=== PATIENT | female | born 1995 | race Caucasian/White ===

== ENCOUNTER 2017-03-16 20:51 | Emergency (ER) | payer OTHER ==
--- NOTE | 2017-03-16 20:54 | PDOC ---
History of Present Illness - General History Source: Patient Exam Limitations: No Limitations - History of Present Illness Initial Comments: 03/16/17 21:10 The patient is a 21 year old female, BIBA with no significant past medical history who presents to the emergency department with nausea and mild abdominal pain s/p eating chicken. The patient reports eating under cooked chicken about an hour ago, with the immediate onset of nausea and abdominal pain. The patient describes her abdominal pain as a mild discomfort and relates feeling gassy. She denies recent fevers, chills, headache or dizziness. She denies recent diarrhea or constipation. She denies recent dysuria, frequency, urgency or hematuria. She denies recent chest pain or shortness of breath. PAST MEDICAL HISTORY: See HPI PAST SURGICAL HISTORY: No significant history. FAMILY HISTORY: No pertinent history. SOCIAL HISTORY: Patient lives with family and is employed. MEDICATIONS: Reviewed. ALLERGIES: As per nursing notes. ROS General: No fevers or chills, no weakness, no weight loss HEENT: No change in vision. No sore throat. No ear pain CardioVascular: No chest pain or shortness of breath Respiratory:No cough, or wheezing. Gastrointestinal: +nausea and abdominal pain. No vomiting, diarrhea or constipation. No rectal bleeding Genitourinary: No dysuria, hematuria, or frequency Musculoskeletal: No joint or muscle pain or swelling Neurologic: No headache, vertigo, dizziness or loss of consciousness Psychiatric: No depression Skin: No rashes or easy bruising Endocrine: no increased thirst or abnormal weight change Allergic: no skin or latex allergy All other systems reviewed and normal Exam: General: Well-nourished well-developed individual, anxious appearing HEENT: Throat: Normal, tonsils normal, no erythema or exudate Neck: Supple, no meningeal signs, no lymphadenopathy Eyes: Pupils equal reactive and round, extraocular motion intact Chest: Nontender to palpation Cardiac: S1-S2 normal, regular rate and rhythm, no murmurs rubs or gallops Respiratory: Lungs clear to auscultation bilateral Abdomen: Soft, nondistended, normal bowel sounds, nontender to palpation diffusely Extremities: Warm, dry, no cyanosis, clubbing, or edema Skin: No rashes Neuro: Alert and oriented x3, nonfocal exam, grossly intact, normal gait Psych: Normal mood and affect <Robby Espinosa - Last Filed: 03/16/17 21:10> - General History Source: Patient Exam Limitations: No Limitations - History of Present Illness Initial Comments: 03/16/17 21:18 A portion of this note was documented by scribe services under my direction. I have reviewed the details of the note, within reason, and agree with the documentation. The case summary and management plan written by me. Assessment and plan: This is a 21-year-old female who comes in by EMS for evaluation of some nausea post eating what she thought was maybe undercooked chicken. Patient said immediately post eating the chicken she developed her symptoms however her mother ate the same chicken and she hassymptoms. Patient denies any vomiting or diarrhea. Patient denies any injury abdominal pain at this time said that she felt gassy. The patient is somewhat anxious. Patient was given hyoscyamine and Maalox and observed for a half hour and then discharged home and told to follow-up with her primary care doctor as needed <Rubio Hoskins I - Last Filed: 03/16/17 21:20> - General Chief Complaint: Pain, Acute Stated Complaint: NAUSEA,ABDOMINAL PAIN AFTER EATING CHICKEN Time Seen by Provider: 03/16/17 20:53 Past History <Robby Espinosa - Last Filed: 03/16/17 21:10> - Immunization History Immunization Up to Date: Yes - Psycho/Social/Smoking Cessation Hx Anxiety: No Suicidal Ideation: No Smoking History: Never smoked Have you smoked in the past 12 months: No Hx Alcohol Use: No Drug/Substance Use Hx: No Substance Use Type: None <Rubio Hoskins I - Last Filed: 03/16/17 21:20> - Past Medical History Allergies/Adverse Reactions: Allergies Allergy/AdvReac Type Severity Reaction Status Date / Time No Known Allergies Allergy Verified 03/16/17 20:53 Home Medications: Ambulatory Orders NK [No Known Home Medication] 03/16/17 *DC/Admit/Observation/Transfer - Attestations Scribe Attestion: 03/16/17 21:09 Documentation prepared by Robby Espinosa, acting as nurses medical assistants phlebotomists for Rubio Hoskins MD. <Robby Espinosa - Last Filed: 03/16/17 21:10> - Discharge Dispostion Admit: No <Rubio Hoskins I - Last Filed: 03/16/17 21:20> Diagnosis at time of Disposition: Nausea alone - Discharge Dispostion Disposition: HOME Condition at time of disposition: Stable - Patient Instructions Additional Instructions: Return to the emergency department immediately with ANY new, persistent or worsening symptoms. Continue any medications as previously prescribed by your physician. You should follow up with your primary doctor as soon as possible regarding today's emergency department visit. . Please make sure your doctor reviews the results of your emergency evaluation. Thank you for coming to the Emergency Department today for your care. It was a pleasure to see you today. Please note that your evaluation is INCOMPLETE until you follow-up with your doctor.
[2017-03-16 21:10] LABS: PH,URINE 6.5 (4.5-8); URINE APPEARANCE Clear; URINE BILIRUBIN Negative (NEGATIVE); URINE BLOOD Negative (NEGATIVE); URINE GLUCOSE (UA) Negative (NEGATIVE); URINE KETONE Negative (NEGATIVE); URINE NITRITE Negative (NEGATIVE); URINE PROTEIN Negative (NEGATIVE); URINE UROBILINOGEN 0.2 (0.2-1.0)
[2017-03-16] MEDS ORDERED: MAG HYDROX/AL HYDROX/SIMETH 30 ML UNIT-DOSE CUP PO PRN (21:10)
[2017-03-16] MEDS ORDERED: HYOSCYAMINE SULFATE 0.125 MG *ODT PO ONE (21:10)
[2017-03-16] MEDS ORDERED: HYOSCYAMINE SULFATE 0.125 MG *ODT ONE (21:12)
[2017-03-16] MEDS ORDERED: MAG HYDROX/AL HYDROX/SIMETH 30 ML UNIT-DOSE CUP ONE (21:12)
[2017-03-16 21:13] LABS: URINE COLOR YELLOW; URINE LEUK ESTERASE TRACE (NEGATIVE)
[2017-03-16 21:16] VITALS: BP 124/67; PULSE 88; TEMP 98.5; BMI 21.6
[2017-03-16] MEDS ORDERED: ONDANSETRON *ODT* 4 MG TABLET ONE (21:46)
[2017-03-16] MEDS ORDERED: ONDANSETRON *ODT* 4 MG TABLET SL ONE (21:46)
[2017-03-16 23:02] LABS: URINE RBC 0-1 /hpf (0-3)
== END 2017-03-16 22:21 | disposition home or self-care (01) ==
LOC: FER 20:51
DX: R11.0 Nausea (principal)
CPT/HCPCS: 81003; 81015; 84703; 99281-25